=== PATIENT | female | born 1985 | race Caucasian/White ===

== ENCOUNTER 2017-06-17 20:05 | Emergency (ER) | payer BC ==
[2017-06-17] MEDS ORDERED: Phenergan 25 MG INJ IV ONE (21:07)
[2017-06-17] MEDS ORDERED: Hydromorphone 1 mg/ml Ampule IV ONE ×2 (21:07→23:33)
--- NOTE | 2017-06-17 21:08 | ERPHSYRPT ---
- History of Present Illness Time Seen by Provider: 06/17/17 21:03 Source: patient Exam Limitations: no limitations Patient Subjective Stated Complaint: Pt sts abd pain x 1 week with decreased appetite. Reports pain initially occurred in lower back. Denies N/V/D. Reports pain is now in left flank and abd. Rates pain 7/10, describes as stabbing, intermittent. Reports on menses at present, heavier than normal. Hx of ectopic last year. Denies symptoms. Triage Nursing Assessment: Pt alert, oriented, answers questions appropriately. Skin pink, warm, dry. Resps non-labored. Pt ambulatory to tx room, steady gait noted. Lung sounds CTA bilat non-labored. ABD soft, non-tender. Bowel sounds x 4 quadrants noted. Physician History: FOR THE PAST MONTH PT HAS HAD A NON-PRODUCTIVE COUGH; FOR THE PAST 2 WEEKS LEFT > RIGHT LOW BACK PAIN AND LEFT LOWER ABDOMINAL PAIN RADIATING TO THE PROXIMAL LEFT THIGH; FOR THE PAST WEEK DECREASED APPETITE. PT DENIES FEVER, DYSURIA, CHEST PAIN. Allergies/Adverse Reactions: No Known Drug Allergies Allergy (Unverified 12/15/15 21:33) Home Medications: No Reportable Medications [No Reported Medications] 12/15/15 [History] Hx Tetanus, Diphtheria Vaccination/Date Given: No Hx Influenza Vaccination/Date Given: No Hx Pneumococcal Vaccination/Date Given: No Immunizations Up to Date: Yes - Review of Systems Constitutional: No Fever Respiratory: Cough Cardiac: No Chest Pain Abdominal/Gastrointestinal: Abdominal Pain (LLQ ABDOMINAL PAIN RADIATING TO THE PROXIMAL LEFT THIGH), Appetite Changes (DECREASED), No Vomiting Genitourinary Symptoms: No Dysuria Musculoskeletal: Back Pain (LOW) All Other Systems: Reviewed and Negative - Past Medical History Pertinent Past Medical History: No - Past Surgical History Past Surgical History: Yes Female Surgical History: Section, Tubal Ligation - Social History Smoking Status: Never smoker Exposure to second hand smoke: No Drug Use: none Patient Lives Alone: No - Female History Hx Last Menstrual Period: now - Nursing Vital Signs Nursing Vital Signs: Initial Vital Signs Temperature 98 F 06/17/17 20:05 Pulse Rate 97 H 06/17/17 20:05 Respiratory Rate 20 06/17/17 20:05 Blood Pressure 171/104 06/17/17 20:05 O2 Sat by Pulse Oximetry 99 06/17/17 20:05 Pain Scale Pain Intensity [] 7 Pain Intensity 0 - Physical Exam General Appearance: alert Eye Exam: PERRL/EOMI Ears, Nose, Throat Exam: pharynx normal, moist mucous membranes Neck Exam: normal inspection Respiratory Exam: lungs clear Cardiovascular Exam: normal heart sounds Gastrointestinal/Abdomen Exam: soft, normal bowel sounds, tenderness (MILD DIFFUSE ABDOMINAL TENDERNESS) Back Exam: normal range of motion Extremity Exam: normal inspection, No swelling Neurologic Exam: alert, cooperative Skin Exam: warm, dry SpO2 Interpretation: normal SpO2: 98 Oxygen Delivery: Room Air - Course Nursing assessment & vital signs reviewed: Yes - Radiology Ultrasound Exam OB Ultrasound: Other (TECH REPORT: LEFT ECTOPIC ) Ordered Tests: Active Orders 24 hr Category Date Time Status Clean Catch Urine Specimen STAT Care 06/17/17 21:07 Active IV Insertion STAT Care 06/17/17 21:07 Active OB <14 WKS 1ST GESTATION [US] Stat Exams 06/17/17 22:29 Taken AMYLASE Stat Lab 06/17/17 21:34 Completed CBC W DIFF Stat Lab 06/17/17 21:34 Completed CMP Stat Lab 06/17/17 21:34 Completed CULTURE,URINE Stat Lab 06/17/17 21:07 Received HCG QUALITATIVE,SERUM Stat Lab 06/17/17 21:34 Completed HCG, Quantitative (Inhouse) Stat Lab 06/17/17 22:05 Completed LIPASE Stat Lab 06/17/17 21:34 Completed MAG [MAGNESIUM] Stat Lab 06/17/17 21:34 Completed UA W/ MICROSCOPIC Stat Lab 06/17/17 21:07 Completed Medication Summary Generic Name Dose Route Start Last Admin Trade Name Freq PRN Reason Stop Dose Admin Sodium Chloride 1,000 mls @ 100 mls/hr 06/17/17 21:15 06/17/17 21:28 Sodium Chloride 0.9% 1000 Ml IV 07/17/17 21:14 100 mls/hr .Q10H USMAN Administration Discontinued Medications Generic Name Dose Route Start Last Admin Trade Name Freq PRN Reason Stop Dose Admin Hydromorphone HCl 1 mg 06/17/17 21:07 06/17/17 21:28 Hydromorphone 1 Mg/Ml Ampule IV 06/17/17 21:08 1 mg STAT ONE Administration Hydromorphone HCl Confirm 06/17/17 21:14 Hydromorphone 1 Mg/Ml Ampule Administered 06/17/17 21:15 Dose 1 mg .ROUTE .STK-MED ONE Ceftriaxone Sodium/Dextrose 1 g in 50 mls @ 100 mls/hr 06/17/17 22:26 22:29 Rocephin 1 Gm-D5w 50 Ml Bag IV 06/17/17 22:55 100 mls/hr STAT STA Administration Ceftriaxone Sodium/Dextrose Confirm 06/17/17 22:29 Rocephin 1 Gm-D5w 50 Ml Bag Administered 06/17/17 22:30 Dose 1 g in 50 mls @ ud IV .STK-MED ONE Promethazine HCl 12.5 mg 06/17/17 21:07 06/17/17 21:28 Phenergan 25 Mg Inj IV 06/17/17 21:08 12.5 mg STAT ONE Administration Promethazine HCl Confirm 06/17/17 21:14 Phenergan 25 Mg Inj Administered 06/17/17 21:15 Dose 25 mg .ROUTE .STK-MED ONE Lab/Rad Data: Laboratory Result Diagrams 06/17/17 21:34 06/17/17 21:34 Laboratory Results 06/17/17 06/17/17 06/17/17 Range/Units 22:05 21:34 21:34 WBC (4.0-10.5) K/mm3 RBC (4.1-5.4) M/mm3 Hgb (12.0-16.0) gm/dl Hct (35-47) % MCV (78-100) fl MCH (26-32) pg MCHC (32-36) g/dl RDW (11.5-14.0) % Plt Count (150-450) K/mm3 MPV (6-9.5) fl Gran % (36.0-66.0) % Lymphocytes % (24.0-44.0) % Monocytes % (0.0-12.0) % Eosinophils % (0.00-5.0) % Basophils % (0.0-0.4) % Basophils # (0-0.4) Sodium (136-145) mEq/L Potassium (3.5-5.1) mEq/L Chloride (98-107) mEq/L Carbon Dioxide (21-32) mEq/L Anion Gap (5-15) MEQ/L BUN (9-20) mg/dL Creatinine (0.55-1.30) mg/dl Estimated GFR ML/MIN Glucose (70-110) MG/DL Calcium (8.5-10.1) mg/dL Magnesium 2.1 (1.8-2.4) mg/dL Total Bilirubin (0.2-1.0) mg/dL AST (15-37) U/L ALT (12-78) U/L Alkaline Phosphatase (46-116) U/L Serum Total Protein (6.4-8.2) gm/dL Albumin (3.4-5.0) g/dL Amylase (25-115) U/L Lipase (73-393) U/L Beta HCG, Quant 673 H (0-6) IU/L Serum , Qual POSITIVE (Negative) Ur Collection Type Urine Color (YELLOW) Urine Appearance (CLEAR) Urine pH (5-6) Ur Specific [place] (1.005-1.025) Urine Protein (Negative) Urine Ketones (NEGATIVE) Urine Blood (0-5) Aramis/ul Urine Nitrite (NEGATIVE) Urine Bilirubin (NEGATIVE) Urine Urobilinogen (0-1) mg/dL Ur Leukocyte Esterase (NEGATIVE) Urine Microscopic RBC (0-2) /HPF Ur Epithelial Cells (FEW) /HPF Urine Bacteria (NEGATIVE) /HPF Urine Mucus (NEGATIVE) /HPF Urine Glucose (NEGATIVE) mg/dL Specimen Received 06/17/17 06/17/17 06/17/17 Range/Units 21:34 21:34 21:07 WBC 10.2 (4.0-10.5) K/mm3 RBC 4.01 L (4.1-5.4) M/mm3 Hgb 11.8 L (12.0-16.0) gm/dl Hct 35.5 (35-47) % MCV 88.5 (78-100) fl MCH 29.4 (26-32) pg MCHC 33.2 (32-36) g/dl RDW 13.3 (11.5-14.0) % Plt Count 347 (150-450) K/mm3 MPV 11.1 H (6-9.5) fl Gran % 72.3 H (36.0-66.0) % Lymphocytes % 19.2 L (24.0-44.0) % Monocytes % 7.1 (0.0-12.0) % Eosinophils % 1.2 (0.00-5.0) % Basophils % 0.2 (0.0-0.4) % Basophils # 0.02 (0-0.4) Sodium 141 (136-145) mEq/L Potassium 3.7 (3.5-5.1) mEq/L Chloride 104 (98-107) mEq/L Carbon Dioxide 25.5 (21-32) mEq/L Anion Gap 15.5 H (5-15) MEQ/L BUN 7 L (9-20) mg/dL Creatinine 0.68 (0.55-1.30) mg/dl Estimated GFR > 60 ML/MIN Glucose 105 (70-110) MG/DL Calcium 9.5 (8.5-10.1) mg/dL Magnesium (1.8-2.4) mg/dL Total Bilirubin 0.40 (0.2-1.0) mg/dL AST 21 (15-37) U/L ALT 20 (12-78) U/L Alkaline Phosphatase 85 (46-116) U/L Serum Total Protein 8.1 (6.4-8.2) gm/dL Albumin 4.3 (3.4-5.0) g/dL Amylase 29 (25-115) U/L Lipase 91 (73-393) U/L Beta HCG, Quant (0-6) IU/L Serum , Qual (Negative) Ur Collection Type CLEAN CATCH Urine Color DARK YELLOW (YELLOW) Urine Appearance CLEAR (CLEAR) Urine pH 5.0 (5-6) Ur Specific [place] 1.030 (1.005-1.025) Urine Protein TRACE (Negative) Urine Ketones MODERATE (NEGATIVE) Urine Blood 250 (0-5) Aramis/ul Urine Nitrite NEGATIVE (NEGATIVE) Urine Bilirubin NEGATIVE (NEGATIVE) Urine Urobilinogen NORMAL (0-1) mg/dL Ur Leukocyte Esterase NEGATIVE (NEGATIVE) Urine Microscopic RBC >100 (0-2) /HPF Ur Epithelial Cells MODERATE (FEW) /HPF Urine Bacteria MODERATE (NEGATIVE) /HPF Urine Mucus MODERATE (NEGATIVE) /HPF Urine Glucose NEGATIVE (NEGATIVE) mg/dL Specimen Received [id number] - Progress Discussed with : Other (SPOKE WITH DR WRIGHT([id number])(OB ) WHO ACCEPTED PT FOR TRANSFER TO [facility] ER. SPOKE WITH DR ESPINOZA([id number])(ER DR) WHO ACCEPTED PT FOR TRANSFER TO [facility] ER.) - Departure Time of Disposition: 23:36 Departure Disposition: Transfer ([facility]) Clinical Impression: LEFT ECTOPIC , UTI Condition: Stable Critical Care Time: No Referrals: SUKHWINDER SILVER [Primary Care Provider] -
[2017-06-17] MEDS ORDERED: Phenergan 25 MG INJ ONE (21:14)
[2017-06-17] MEDS ORDERED: Hydromorphone 1 mg/ml Ampule ONE ×2 (21:14→23:35)
[2017-06-17] MEDS ORDERED: Sodium Chloride 0.9% 1000 ML 1,000 ML ONE (21:14)
[2017-06-17] MEDS ORDERED: Sodium Chloride 0.9% 1000 ML 1,000 ML IV SCH (21:15)
[2017-06-17 21:38] LABS: BASOPHIL % 0.2 % (0.0-0.4); Eosinophil % 1.2 % (0.00-5.0); Granulocytes % 72.3 % (36.0-66.0); Lymphocytes % 19.2 % (24.0-44.0); Mean Cell Volume 88.5 fl (78-100); Mean Corpuscular Hemoglobin 29.4 pg (26-32); Mean Platelet Volume 11.1 fl (6-9.5); Monocytes % 7.1 % (0.0-12.0); Platelet Count 347 K/mm3 (150-450); Red Blood Count 4.01 M/mm3 (4.1-5.4); Red Cell Distribution Width 13.3 % (11.5-14.0); White Blood Count 10.2 K/mm3 (4.0-10.5)
[2017-06-17 22:00] LABS: ALBUMIN 4.3 g/dL (3.4-5.0); ALKALINE PHOSPHATASE 85 U/L (46-116); ANION GAP 15.5 MEQ/L (5-15); BLOOD UREA NITROGEN 7 mg/dL (9-20); CHLORIDE 104 mEq/L (98-107); Carbon Dioxide 25.5 mEq/L (21-32); Glucose 105 MG/DL (70-110); LIPASE 91 U/L (73-393); Potassium 3.7 mEq/L (3.5-5.1); SGOT/AST 21 U/L (15-37); SGPT/ALT 20 U/L (12-78); SODIUM 141 mEq/L (136-145); Total Protein 8.1 gm/dL (6.4-8.2)
[2017-06-17 22:06] LABS: Collection Type CLEAN CATCH; Glucose NEGATIVE (NEGATIVE); Leukocyte Esterase NEGATIVE (NEGATIVE)
[2017-06-17 22:07] LABS: ADD URINE CULTURE? YES (NO); Bacteria MODERATE /HPF (NEGATIVE); Bilirubin NEGATIVE (NEGATIVE); Blood 250 Ery/ul (0-5); COMPLETE URINE MICROSCOPIC? YES; Epithelial Cells MODERATE /HPF (FEW); Mucus MODERATE /HPF (NEGATIVE)
[2017-06-17] MEDS ORDERED: ROCEPHIN 1 Gm-D5w 50 ml Bag** 1 G/50 ML IVPB IV STA (22:26)
[2017-06-17] MEDS ORDERED: ROCEPHIN 1 Gm-D5w 50 ml Bag** 1 G/50 ML IVPB IV ONE (22:29)
[2017-06-17 23:20] VITALS: O2SAT 98
[2017-06-18 00:17] VITALS: BP 126/82; PULSE 82
--- NOTE | 2017-06-18 08:50 | XRAY ---
Indication: Left lower quadrant pain. Bleeding. Positive . Two-dimensional and transvaginal pelvic sonogram was performed. Comparison: December 15, 2015. Uterus is again anteverted without focal solid/cystic mass. No endometrial cavity mass, fluid collection, or thickening. In the left adnexa, there is now a 5.8 x 4.6 x 7.7 cm heterogeneous echogenic mass without abnormal color flow. Finding is similar in appearance to the previous right adnexal mass but slightly larger. Also small adnexal and cul-de-sac free fluid. Left and right ovaries unremarkable. Impression: 1. Negative for intrauterine gestational sac. 2. There is now a left adnexal solid mass as detailed. Appearance is similar to the right adnexal mass previously reported. Partial differential includes pedunculated uterine fibroid, endometrioma, and other benign/malignant tumors. Ectopic is not completely excluded in the right clinical setting. Comment: Preliminary report was given.
== END 2017-06-18 00:17 | disposition short-term general hospital (02) ==
LOC: ED 20:05
DX: O00.90 Unspecified ectopic pregnancy without intrauterine pregnancy (principal); O23.40 Unspecified infection of urinary tract in pregnancy, unspecified trimester
CPT/HCPCS: 36000; 36415; 76801; 76815; 80053; 81000; 82150; 83690; 83735; 84702; 84703; 85025; 87086; 96360; 96361; 96365; 96374; 96375; 96376; 99285; J0696; J1170; J2550